=== PATIENT | female | born 1965 | race African-American/Black ===

== ENCOUNTER 2018-09-12 11:51 | Outpatient (REF) | payer OTHER, SELFPAY ==
[2018-09-12 14:14] LABS: ALT 25 U/L (12-78); AST 16 U/L (15-37); Albumin 3.7 g/dL (3.4-5.0); Alkaline Phosphatase 54 U/L (46-116); Anion Gap 10.4 mmol/L (3-11); BUN 12 mg/dL (7-18); Bilirubin, Total 0.3 mg/dL (0.2-1.0); CO2 25.6 mmol/L (21.0-32.0); CREATININE 0.77 mg/dL (0.55-1.02); Calcium 9.3 mg/dL (8.5-10.1); Chloride 98 mmol/L (98-107); Cholesterol 240 mg/dL (50-200); Glucose 79 mg/dL (70-100); HDL Cholesterol 65 mg/dL (40-60); LDL CHOLESTEROL 146 mg/dL (<100); Potassium 4.2 mmol/L (3.5-5.1); Sodium 134 mmol/L (136-145); TSH (W/Ref FT4) 1.23 uIU/mL (0.358-3.74); Triglyceride 67 mg/dL (30-150)
== END 2018-09-12 12:11 ==
LOC: NCHCN 11:51
PROVIDERS: PCP Family Medicine; Visit Provider Family Medicine
DX: Z00.00 Encounter for general adult medical examination without abnormal findings (principal); E04.9 Nontoxic goiter, unspecified; Z13.220 Encounter for screening for lipoid disorders
CPT/HCPCS: 80053; 80061; 83721; 84443

== ENCOUNTER 2019-01-23 09:35 | Outpatient (REF) | payer OTHER, SELFPAY ==
[2019-01-23 12:57] LABS: HCT 38.8 % (36.0-46.0); HGB 12.6 g/dL (12.0-15.5); Mean Corp. HGB Concentration 32.5 g/dL (32.0-36.0); Mean Corpuscular Hemoglobin 27.8 pg (27.0-33.0); Mean Corpuscular Volume 85.5 fL (80-95); Mean Platelet Volume 10.9 fL (8.0-11.0); Platelet Count 198 x1000/uL (130-400); RBC 4.54 m/cumm (4.00-5.20); RBC Distribution Width 14.5 % (11.7-14.6); White Blood Cell Count 4.76 k/cumm (4.4-10.8)
[2019-01-23 13:22] LABS: ALT 28 U/L (12-78); AST 26 U/L (15-37); Albumin 3.6 g/dL (3.4-5.0); Alkaline Phosphatase 56 U/L (46-116); Anion Gap 8.9 mmol/L (3-11); BUN 17 mg/dL (7-18); Bilirubin, Total 0.2 mg/dL (0.2-1.0); CO2 28.1 mmol/L (21.0-32.0); CREATININE 0.74 mg/dL (0.55-1.02); Calcium 9.5 mg/dL (8.5-10.1); Chloride 102 mmol/L (98-107); Cholesterol 226 mg/dL (50-200); Glucose 93 mg/dL (70-100); HDL Cholesterol 60 mg/dL (40-60); LDL CHOLESTEROL 132 mg/dL (<100); Potassium 4.1 mmol/L (3.5-5.1); Sodium 139 mmol/L (136-145); Total Protein 8.2 g/dL (6.4-8.2); Triglyceride 78 mg/dL (30-150)
[2019-01-23 13:29] LABS: VALPROIC ACID 87.7 ug/mL (50-100)
== END 2019-01-23 09:55 ==
LOC: NCHCN 09:35
PROVIDERS: PCP Family Medicine; Visit Provider Family Medicine
DX: E78.5 Hyperlipidemia, unspecified (principal); E04.9 Nontoxic goiter, unspecified; R53.83 Other fatigue; D89.0 Polyclonal hypergammaglobulinemia; Z51.81 Encounter for therapeutic drug level monitoring; F31.75 Bipolar disorder, in partial remission, most recent episode depressed
CPT/HCPCS: 80053; 80061; 83721; 85027; 80164

== ENCOUNTER 2019-07-18 14:06 | Outpatient (REF) | payer OTHER, SELFPAY ==
[2019-07-18 21:39] LABS: HCT 38.2 % (36.0-46.0); HGB 12.6 g/dL (12.0-15.5); Mean Corpuscular Hemoglobin 28.1 pg (27.0-33.0); Mean Corpuscular Volume 85.1 fL (80-95); Mean Platelet Volume 11.2 fL (8.0-11.0); Platelet Count 196 x1000/uL (130-400); RBC 4.49 m/cumm (4.00-5.20); RBC Distribution Width 14.6 % (11.7-14.6); White Blood Cell Count 4.97 k/cumm (4.4-10.8)
[2019-07-18 22:21] LABS: ALT 19 U/L (14-59); AST 23 U/L (15-37); Alkaline Phosphatase 62 U/L (46-116); Anion Gap 13.9 mmol/L (3-11); BUN 15 mg/dL (7-18); Bilirubin, Total 0.4 mg/dL (0.2-1.0); CO2 24.1 mmol/L (21.0-32.0); CREATININE 1.11 mg/dL (0.55-1.02); Calcium 9.6 mg/dL (8.5-10.1); Chloride 100 mmol/L (98-107); Estimated GFR 51.62 (mL/min/1.73m2); Glucose 99 mg/dL (70-100); Potassium 3.9 mmol/L (3.5-5.1); Sodium 138 mmol/L (136-145); Total Protein 8.5 g/dL (6.4-8.2)
[2019-07-18 23:35] LABS: VALPROIC ACID 92.5 ug/mL (50-100)
== END 2019-07-18 14:26 ==
LOC: NCHCN 14:06
PROVIDERS: PCP Family Medicine; Visit Provider Family Medicine
DX: R53.83 Other fatigue (principal); F31.75 Bipolar disorder, in partial remission, most recent episode depressed; Z79.899 Other long term (current) drug therapy; Z51.81 Encounter for therapeutic drug level monitoring
CPT/HCPCS: 80053; 85027; 80164

== ENCOUNTER 2019-09-10 16:11 | Emergency (ER) | payer OTHER, SELFPAY ==
[2019-09-10 16:13] VITALS: BP 120/78; PULSE 86; RESP 14; TEMP 36.4; O2SAT 100
--- NOTE | 2019-09-10 16:31 | ED.GENADUL_ITS ---
Discharge Plan Disposition Patient Disposition: HOME Condition: Stable Discharge Details Chief Complaint: DentalOral Clinical Impression: Pain, dental Primary Care Provider: Candy Kelly ED Provider: Adi Gonzaelz Home Meds and New Rx's Prescriptions: New penicillin V potassium 500 mg tablet 500 mg PO QID Qty: 30 RF: 0 No Action venlafaxine [Effexor XR] 150 MG capsule,extended release 24hr 225 mg PO DAILY RF: 0 divalproex [Depakote] 500 MG tablet,delayed release (DR/EC) 1,000 mg PO DAILY RF: 0 ibuprofen 200 mg Tablet 400 mg PO Q6H PRNRF: 0 Discharge Instructions Instructions: Toothache (ED) Additional Instructions: 1. Drink plenty of fluids. 2. Continue all medications as prescribed. 3. Acetaminophen 1000mg every 4 hours (up to 5 time a day) and/or ibuprofen 600mg every 6 hours as needed for fever or pain. 4. Penicillin 500 mg 4 times a day for 7 days. Return to the Emergency Department (ED) if your condition worsens, does not improve as expected, or for ANY other concerns. Specifically, return if you have new or uncontrolled pain, worsening fever, difficulty breathing, vomiting, or are unable to drink fluids. Medical Decision Making 54-year-old with a history of receding gums who presents with 1 week of worsening pain at her right upper and lower posterior molars. Exam nondiagnostic with no significant gingival swelling, erythema, or fluctuance. However, because of her increased pain, treated with oral penicillin for possible progressive dental infection. Discharged with a plan to follow-up with her dentist tomorrow. Given usual and customary return instructions prior to discharge. Medical Records Medical records reviewed: Yes I reviewed the patient's medical records. HPI 54-year-old woman with a past medical history which includes a receding gumline with associated discomfort. Presents with 1 week of worsening pain associate with the right lateral gingiva/dentition. Pain was initially adjacent to her upper right molars and now is since spread to involve her posterior lower right molars as well. Has increased pain when trying to chew and eat. Denies fever/chills, oropharyngeal swelling, significant neck pain or swelling. General Date/Time Provider Initiated Documentation: 09/10/19 16:27 . Related Data Home Medications Medication Instructions Recorded Confirmed divalproex [Depakote] 1,000 mg PO DAILY tab-cap 03/05/17 09/10/19 venlafaxine [Effexor XR] 225 mg PO DAILY tab-cap 03/05/17 09/10/19 ibuprofen 400 mg PO Q6H PRN 09/10/19 09/10/19 penicillin V potassium 500 mg PO QID #30 tab 09/10/19 Previous Rx's Medication Instructions Recorded penicillin V potassium 500 mg PO QID #30 tab 09/10/19 Allergies Allergy/AdvReac Type Severity Reaction Status Date / Time No Known Allergies Allergy Unverified 09/10/19 16:16 General Stated Complaint: DentalOral ELISE: 4 Review of Systems All systems reviewed & are unremarkable except as noted in HPI and below PFSH Surgical History Colonoscopy - MAC (03/22/17) wisdom teeth Social History Smoking/Tobacco Use Status: Former Tobacco Use Alcohol Intake: never Drug use: Never Substance use type: does not use Do you feel safe at home: Yes Do you feel safe in your relationship?: Yes Exam Narrative Exam Narrative: Nursing note and vital signs have been reviewed and noted. GENERAL: alert, active, no acute distress, well -hydrated, well-nourished HEENT: atraumatic/normocephalic, PERRLA, EOMI, conjunctiva clear, external ears/canals normal, nasal mucosa normal; no significant gingival erythema edema, or fluctuance along the right upper and lower molars. NECK: supple, full range of motion CARDIOVASCULAR: nl pulses, no edema PULMONARY: nl effort, no audible wheezing or stridor ABDOMEN: non-distended EXTREMITY: normal muscle tone, all joints with FROM, no deformity NUERO: normal mentation, moving all extremities, normal stance and gait, PSYCH: alert and oriented SKIN: no new rashes or lesions Course Vital Signs Vital signs: Vital Signs Temperature 97.5 F L 09/10/19 16:13 Pulse 86 09/10/19 16:13 Respiratory Rate 14 09/10/19 16:13 Blood Pressure 120/78 09/10/19 16:13 Pulse Oximetry 100 09/10/19 16:13 Temperature 97.5 F L 09/10/19 16:13 Pulse 86 09/10/19 16:13 Respiratory Rate 14 09/10/19 16:13 Respiratory Effort Non-Labored 09/10/19 16:15 Blood Pressure 120/78 09/10/19 16:13 Blood Pressure Position Sitting 09/10/19 16:13 Pulse Oximetry 100 09/10/19 16:13 Oxygen Delivery Method Room Air 09/10/19 16:13 Oxygen Flow Rate 0 09/10/19 16:13 Pain Level 5 09/10/19 16:18
[2019-09-10] MEDS: Penicillin V POTASSIUM 500 MG TAB PO (16:32)
== END 2019-09-10 16:35 | disposition home or self-care (01) ==
LOC: ER 16:36
PROVIDERS: Emergency Provider Emergency Medicine; PCP Family Medicine
DX: R68.84 Jaw pain (principal); K06.010 Localized gingival recession, unspecified
CPT/HCPCS: 99283

== ENCOUNTER 2019-11-02 01:26 | Outpatient (CLI) | payer OTHER, SELFPAY ==
--- NOTE | 2019-11-02 08:10 | DI.MAMMO_ITS ---
EXAM: MAMMO SCREENING CLINICAL HISTORY: SCREENING, Z12.31 TECHNIQUE: Mammograms were interpreted according to the usual protocol including computer analysis w [employer] CAD system, tomosynthesis and C-view imaging. COMPARISON: February 2017 FINDINGS: The breasts are heterogeneously dense. No dominant mass or clumped microcalcification is identified in either breast. Current examination is compared with previous examinations including February 2017 and there has been no gross interval change in appearance in comparison with the previous studies. IMPRESSION: No specific evidence of malignancy at this time. Routine screening examinations are suggested at year ly intervals in this age group according to the ACS/ACR guidelines. Category 1, breast density catego ry C. BI-RADS Cat 1 - Negative Breast Density - Category C - Heterogeneously dense
== END 2019-11-02 01:46 ==
PROVIDERS: PCP Family Medicine; Visit Provider Family Medicine
DX: Z12.31 Encounter for screening mammogram for malignant neoplasm of breast (principal)
CPT/HCPCS: 77063; 77067

== ENCOUNTER 2019-12-27 13:20 | Outpatient (REF) | payer OTHER, SELFPAY ==
[2019-12-27 20:56] LABS: Abs Immature Grans 0.01 k/cumm (0.0-0.09); Absolute Lymphocyte Count 2.63 k/cumm (1.2-3.4); Absolute Monocyte Count 0.35 k/cumm (0.11-0.7); Absolute Neutrophil Count 2.26 k/cumm (1.2-6.7); HCT 37.1 % (36.0-46.0); HGB 12.2 g/dL (12.0-15.5); Immature Grans % 0.2 %; Lymphocytes % 50.1; Mean Corp. HGB Concentration 32.9 g/dL (32.0-36.0); Mean Corpuscular Volume 85.3 fL (80-95); Monocytes % 6.7; Platelet Count 227 x1000/uL (130-400); RBC 4.35 m/cumm (4.00-5.20); RBC Distribution Width 13.6 % (11.7-14.6); White Blood Cell Count 5.25 k/cumm (4.4-10.8)
[2019-12-28 17:33] LABS: Rheumatoid Factor <8.6 IU/mL (<12.0)
[2020-01-01 11:01] LABS: Antinuclear Ab 2.9 U; Cyclic Citrullinated Peptide <15.6 U
[2020-01-03 13:39] LABS: SS-A Antibody 3.9 Units (<20.0)
== END 2019-12-27 13:40 ==
LOC: NCHCN 13:20
PROVIDERS: PCP Family Medicine; Visit Provider Family Medicine
DX: R53.83 Other fatigue (principal); R68.2 Dry mouth, unspecified; M25.50 Pain in unspecified joint; E55.9 Vitamin D deficiency, unspecified
CPT/HCPCS: 82306; 86038; 86200; 85025; 86235; 86431

== ENCOUNTER 2020-02-21 15:45 | Emergency (ER) | payer OTHER, SELFPAY ==
--- NOTE | 2020-02-21 15:45 | DI.US_ITS ---
EXAM: US LOWER EXTREMITY VENOUS RT CLINICAL HISTORY: Pain/swelling TECHNIQUE: Right lower extremity venous ultrasound performed using grayscale, color-flow, and spectr al Doppler analysis. COMPARISON: No exams were available for comparison FINDINGS: The right common femoral, femoral and popliteal veins demonstrate normal compressibility, augmentatio n, and color Doppler. The posterior tibial veins are patent. The saphenofemoral junction is unremark able. There is no evidence of a Gallegos cyst. The soft tissues are unremarkable. IMPRESSION: No DVT. DATA REPOSITORY:
[2020-02-21 15:53] VITALS: BP 124/81; PULSE 83; RESP 16; TEMP 36.4; O2SAT 98
[2020-02-21 16:03] VITALS: RESP 16
--- NOTE | 2020-02-21 16:40 | DI.VRAD_ITS ---
PROCEDURE INFORMATION: Exam: US Duplex Right Lower Extremity Veins, Limited Exam date and time: 02/21/2020 3:52 PM Age: 54 years old Clinical indication: Leg, lower; Patient HX: RT calf pain after injury rolling muscle. PT noticed swelling of right ankle/foot region today. TECHNIQUE: Imaging protocol: Real-time Duplex ultrasound of the Right Lower Extremity with 2-D ospina scale, color Doppler flow and spectral waveform analysis with image documentation. Limited exam was focused on the right lower extremity veins. COMPARISON: No relevant prior studies available. FINDINGS: Right deep veins: Unremarkable. The common femoral, femoral, proximal profunda femoral and popliteal veins are patent without thrombus. Normal Doppler waveforms. Normal compressibility and/or augmentation response. Right superficial veins: Unremarkable. Saphenofemoral junction is patent without thrombus. Soft tissues: Unremarkable. IMPRESSION: No DVT of the right lower extremity veins. Dictated and Authenticated by: Richard Balderrama MD. Ordering:KAYLEE Holguin MD
--- NOTE | 2020-02-21 17:10 | DI.RAD_ITS ---
EXAM: XR CHEST 2V PA LATERAL CLINICAL HISTORY: thoracic pain TECHNIQUE: 2D digital imaging was performed. COMPARISON: No exams were available for comparison FINDINGS: MEDIASTINUM: Normal. HEART: Normal. PULMONARY VASCULATURE: Normal. LUNGS: Clear. PLEURAL SPACE: No pleural effusion or pneumothorax. BONE:Normal. OTHER FINDINGS:Normal. IMPRESSION: No acute pulmonary findings. DATA REPOSITORY: RADIATION DOSE DELIVERED:
[2020-02-21 17:12] LABS: Abs Immature Grans 0.01 k/cumm (0.0-0.09); Absolute Basophil Count 0.01 k/cumm (0.0-0.2); Absolute Lymphocyte Count 2.32 k/cumm (1.2-3.4); Absolute Monocyte Count 0.41 k/cumm (0.11-0.7); Basophils % 0.2; HCT 34.2 % (36.0-46.0); HGB 11.2 g/dL (12.0-15.5); Immature Grans % 0.2 %; Lymphocytes % 44.2; Mean Corp. HGB Concentration 32.7 g/dL (32.0-36.0); Mean Corpuscular Hemoglobin 27.4 pg (27.0-33.0); Mean Corpuscular Volume 83.6 fL (80-95); Mean Platelet Volume 9.8 fL (8.0-11.0); Monocytes % 7.8; Neutrophils % 47.6; Platelet Count 195 x1000/uL (130-400); RBC 4.09 m/cumm (4.00-5.20); RBC Distribution Width 13.9 % (11.7-14.6); White Blood Cell Count 5.25 k/cumm (4.4-10.8)
--- NOTE | 2020-02-21 17:15 | DI.VRAD_ITS ---
PROCEDURE INFORMATION: Exam: XR Chest, 2 Views Exam date and time: 02/21/2020 5:10 PM Age: 54 years old Clinical indication: Other: Thoracic pain TECHNIQUE: Imaging protocol: XR of the chest Views: 2 views. COMPARISON: No relevant prior studies available. FINDINGS: Lungs: Unremarkable. No consolidation. Pleural space: Unremarkable. No pleural effusion. No pneumothorax. Heart/Mediastinum: Unremarkable. No cardiomegaly. Bones/joints: Unremarkable. IMPRESSION: No acute abnormality. Dictated and Authenticated by: Richard Balderrama MD. Ordering:NELL Vazquez MD
[2020-02-21 17:28] LABS: ALT 23 U/L (14-59); AST 18 U/L (15-37); Albumin 3.4 g/dL (3.4-5.0); Alkaline Phosphatase 59 U/L (46-116); Anion Gap 7.4 mmol/L (3-11); BUN 16 mg/dL (7-18); Bilirubin, Total 0.2 mg/dL (0.2-1.0); CO2 28.6 mmol/L (21.0-32.0); CREATININE 0.84 mg/dL (0.55-1.02); Calcium 8.9 mg/dL (8.5-10.1); Chloride 99 mmol/L (98-107); Glucose 82 mg/dL (74-106); Potassium 3.7 mmol/L (3.5-5.1); Sodium 135 mmol/L (136-145); Total Protein 7.6 g/dL (6.4-8.2)
[2020-02-21 17:30] LABS: Troponin I < 0.05 ng/Ml (<0.06)
[2020-02-21 17:32] VITALS: BP 115/77; PULSE 75; RESP 18; TEMP 36.5; O2SAT 99
--- NOTE | 2020-02-21 17:43 | ED.GENADUL_ITS ---
Discharge Plan Disposition Patient Disposition: HOME Condition: Stable Discharge Details Chief Complaint: Vascular Clinical Impression: Back pain, Plantar fasciitis Primary Care Provider: Candy Kelly ED Provider: George Barlow Home Meds and New Rx's Prescriptions: No Action venlafaxine [Effexor XR] 150 MG capsule,extended release 24hr 225 mg PO DAILY RF: 0 divalproex [Depakote] 500 MG tablet,delayed release (DR/EC) 1,000 mg PO DAILY RF: 0 ibuprofen 200 mg Tablet 400 mg PO Q6H PRNRF: 0 acetaminophen 500 mg Tablet 1,000 mg PO Q6H PRNRF: 0 Discharge Instructions Instructions: Plantar Fasciitis (ED), Back Pain (ED), Plantar Fasciitis Exercises (ED) Additional Instructions: Work-up in the ER is unremarkable for emergent process. [id number] medication such as Tylenol and/or Motrin as directed for discomfort. We discussed cool and/or warm compresses and gentle stretching for your back. We discussed different stretches and massage for your plantar fasciitis. Please watch for new or worsening symptoms and return to the ER for any concerns. I do recommend that you contact your primary care provider tomorrow for prompt outpatient reevaluation Discharge Data Discharge Date/Time-TO BE ENTERED AT DEPARTURE: 02/21/20 17:53 Medical Decision Making This is a 54-year-old female who presents with intermittent symptoms such as right foot and calf discomfort, right axilla sensation, back spasms for the past 3 weeks. She is primarily concerned of DVT and/or PE. She appears well, nontoxic. She is a non-smoker and has never had any hormone therapy. Clinically her leg and foot are unremarkable, Homans sign negative, extremely low suspicion for DVT. Will obtain ultrasound. Given her vague symptoms such as axilla sensation, back spasms, back pain, will initiate laboratory draw, CBC, CMP, troponin, EKG and chest x-ray. Given her presentation, duration of symptoms, currently feeling asymptomatic, will only obtain a single troponin EKG. Patient is comfortable with this plan. Pulse in the 80s, O2 sat 98% on room air. I do believe that her presentation today is multifactorial and her symptoms are likely unrelated. White blood cell count of 5.25 hemoglobin 11.2 hematocrit 34.2 platelet count 195. Sodium 135 potassium 3.7 chloride 99, carbon dioxide 20.6, creatinine 0.84, GFR greater than 60. Troponin less than 0.05. Chest x-ray and ultrasound unremarkable. Given she denies chest pain, has a negative ultrasound, negative x-ray, her O2 sats are 98% on room air and her pulse in the 80s, we did not obtain d-dimer as suspicion for DVT-PE is extremely low. Discussed laboratory values, imaging, EKG with patient. Patient reports that she is currently asymptomatic and very relieved. We discussed [id number] anti-inflammatory therapy, stretching, cool and/or warm compresses for her back and plantar fasciitis. We discussed that if she continues to have the sensation of attentional in her arm that an outpatient nerve conduction study may be indicated. Patient has no additional questions or concerns and is comfortable discharge at this time. She was encouraged to return to the ER for new or worsening symptoms, otherwise contact her primary care provider tomorrow for prompt outpatient reevaluation. Medical Records Medical records reviewed: Yes I reviewed the patient's medical records. Imaging Data Radiologic Study: Attestation: I personally reviewed and interpreted this imaging study as follows: Imaging: X-Ray Radiologist's impression: Chest x-ray negative Radiologic Study #2: Attestation: I personally reviewed and interpreted this imaging study as follows: Imaging: Ultrasound Radiologist's impression: Venous ultrasound of right lower extremity negative Lab Data Lab results reviewed: Yes I reviewed the patient's lab results. Lab results narrative: Laboratory Tests Range/Units 02/21/20 02/21/20 17:00 17:00 WBC (4.4-10.8) k/cumm 5.25 RBC (4.00-5.20) m/cumm 4.09 Hgb (12.0-15.5) g/dL 11.2 L Hct (36.0-46.0) % 34.2 L MCV (80-95) fL 83.6 MCH (27.0-33.0) pg 27.4 MCHC (32.0-36.0) g/dL 32.7 RDW (11.7-14.6) % 13.9 Plt Count (130-400) x1000/uL 195 MPV (8.0-11.0) fL 9.8 Immature Gran % % 0.2 Neutrophils % 47.6 Lymphocytes % 44.2 Monocytes % 7.8 Eosinophils % 0.0 Basophils % 0.2 Absolute Neutrophils (1.2-6.7) k/cumm 2.50 Absolute Lymphocytes (1.2-3.4) k/cumm 2.32 Absolute Monocytes (0.11-0.7) k/cumm 0.41 Absolute Eosinophils (0.0-0.7) k/cumm 0.00 Absolute Basophils (0.0-0.2) k/cumm 0.01 Sodium (136-145) mmol/L 135 L Potassium (3.5-5.1) mmol/L 3.7 Chloride (98-107) mmol/L 99 Carbon Dioxide (21.0-32.0) mmol/L 28.6 Anion Gap (3-11) mmol/L 7.4 BUN (7-18) mg/dL 16 Creatinine (0.55-1.02) mg/dL 0.84 Estimated GFR/1.73 m2 (mL/min/1.73m2) >= 60.00 Glucose (74-106) mg/dL 82 Calcium (8.5-10.1) mg/dL 8.9 Total Bilirubin (0.2-1.0) mg/dL 0.2 AST (15-37) U/L 18 ALT (14-59) U/L 23 Alkaline Phosphatase (46-116) U/L 59 Troponin I (<0.06) ng/Ml < 0.05 Total Protein (6.4-8.2) g/dL 7.6 Albumin (3.4-5.0) g/dL 3.4 ECG Data Attestation: I personally reviewed and interpreted this ECG (s) as follows: Interpretation: EKG obtained at 1651. Reviewed and interpreted with Dr. Brandt. Sinus rhythm. Ventricular of 74. No acute ST elevation or depression. HPI General Mode of arrival: ambulatory . Date/Time Provider Initiated Documentation: 02/21/20 15:49 . Limitations to Documentation: no limitations . Information obtained by: patient . HPI Narrative: This is a 54-year-old female who presents with multiple complaints. She reports that she has been working out with a geriatric physical therapist, thought that she developed plantar fasciitis of the right foot roughly 3 weeks ago. She reports that she is massaging her foot and calf I then noticed that her right calf was painful and possibly slightly swollen. She reports that currently her right foot and calf are asymptomatic. She denies history of DVT or PE. Subsequently over the past couple of weeks she noticed some altered sensation to her right axilla like she pinched a nerve. She reports that this is intermittent and occurs primarily when sleeping with her arm extended over her head, seems positional in nature. Nothing radiates down her right arm. Patient also reports thoracic back spasms intermittent over the past couple of weeks, she reports is worse with bending over or with certain positions. She currently denies any altered sensation to her right axilla or back spasms. She reports currently she has lower back discomfort from sitting in the hospital stretcher. There is no pain rating down her legs, numbness, tingling, weakness. She denies any chest pain or shortness of breath. She is concerned about a DVT and/or PE. Related Data Home Medications Medication Instructions Recorded Confirmed divalproex [Depakote] 1,000 mg PO DAILY tab-cap 03/05/17 02/21/20 venlafaxine [Effexor XR] 225 mg PO DAILY tab-cap 03/05/17 02/21/20 ibuprofen 400 mg PO Q6H PRN 09/10/19 02/21/20 acetaminophen 1,000 mg PO Q6H PRN 02/21/20 02/21/20 Allergies Allergy/AdvReac Type Severity Reaction Status Date / Time No Known Allergies Allergy Unverified 02/21/20 15:59 General Stated Complaint: Vascular ELISE: 3 Review of Systems Constitutional Constitutional: Denies fatigue, Denies fever(s) and Denies weakness Eyes Eyes: Denies change in vision Cardiovascular Cardiovascular: Denies chest pain and Denies dyspnea Respiratory Respiratory: Denies cough and Denies dyspnea Gastrointestinal Gastrointestinal: Denies abdominal pain, Denies nausea and Denies vomiting Genitourinary Genitourinary: Denies dysuria Musculoskeletal Musculoskeletal: Reports back pain, Denies myalgias, Denies numbness and Denies tingling Integumentary/Breasts Skin/Breast: Denies erythema Neurologic Neurologic: Denies numbness, Denies tingling and Denies weakness Endocrine Endocrine: Denies fatigue PFSH Surgical History Colonoscopy - MAC (03/22/17) wisdom teeth Social History Smoking/Tobacco Use Status: Former Tobacco Use Alcohol Intake: current Alcohol Intake frequency: a few times a week Alcohol type: beer Drug use: Never Substance use type: does not use Do you feel safe at home: Yes Do you feel safe in your relationship?: Yes Exam Const General: cooperative, healthy appearing, comfortable and no acute distress Orientation: alert, awake and oriented x3 HENMT Head: normal to inspection, normocephalic and atraumatic Mouth: moist mucous membranes Throat: posterior oropharynx normal Eyes Conjunctivae: conjunctivae normal Neck Neck: normal visual inspection, full ROM, no meningeal signs, trachea midline, supple and nontender Chest Chest: normal inspection of the chest and normal palpation of entire chest wall Resp Effort & Inspection: normal respiratory effort and able to speak in complete sentences Auscultation: clear to auscultation bilaterally Cardio Rate: regular rate Rhythm: regular rhythm GI Palpation: soft and nontender Back/Spine/Pelvis Back: no CVA tenderness, No warmth and No back tenderness Skin General skin exam: no rashes or lesions noted Neuro General: patient alert, patient awake, moves all extremities and no focal motor deficits Gait: normal gait Motor: muscle tone normal throughout Sensory Exam: no sensory deficits noted Extrem General: normal to inspection, full ROM, capillary refill normal, no pedal edema, no calf tenderness, normal gait and other (Negative Homans sign bilaterally) Psych Appearance: grossly normal Mental Status: mental status grossly normal Course Vital Signs Vital signs: Vital Signs Temperature 36.4 C L 02/21/20 15:53 Pulse 83 02/21/20 15:53 Respiratory Rate 16 02/21/20 15:53 Blood Pressure 124/81 02/21/20 15:53 Pulse Oximetry 98 02/21/20 15:53 Temperature 36.5 C 02/21/20 17:32 Temperature Source Skin 02/21/20 17:32 Pulse 75 02/21/20 17:32 Pulse Rhythm Regular 02/21/20 17:32 Pulse Strength Normal 02/21/20 17:32 Respiratory Rate 18 02/21/20 17:32 Respiratory Effort 02/21/20 17:32 Respiratory Depth Normal 02/21/20 17:32 Respiratory Pattern Normal 02/21/20 17:32 Blood Pressure 115/77 02/21/20 17:32 Blood Pressure Mean 89 02/21/20 17:32 Blood Pressure Position Supine 02/21/20 17:32 Pulse Oximetry 99 02/21/20 17:32 Oxygen Delivery Method Room Air 02/21/20 17:32 Oxygen Flow Rate 0 02/21/20 17:32 Pain Level 0 02/21/20 16:03 Lab/Test Results Lab/Test Results: Laboratory Tests Range/Units 02/21/20 02/21/20 17:00 17:00 WBC (4.4-10.8) k/cumm 5.25 RBC (4.00-5.20) m/cumm 4.09 Hgb (12.0-15.5) g/dL 11.2 L Hct (36.0-46.0) % 34.2 L MCV (80-95) fL 83.6 MCH (27.0-33.0) pg 27.4 MCHC (32.0-36.0) g/dL 32.7 RDW (11.7-14.6) % 13.9 Plt Count (130-400) x1000/uL 195 MPV (8.0-11.0) fL 9.8 Immature Gran % % 0.2 Neutrophils % 47.6 Lymphocytes % 44.2 Monocytes % 7.8 Eosinophils % 0.0 Basophils % 0.2 Absolute Neutrophils (1.2-6.7) k/cumm 2.50 Absolute Lymphocytes (1.2-3.4) k/cumm 2.32 Absolute Monocytes (0.11-0.7) k/cumm 0.41 Absolute Eosinophils (0.0-0.7) k/cumm 0.00 Absolute Basophils (0.0-0.2) k/cumm 0.01 Sodium (136-145) mmol/L 135 L Potassium (3.5-5.1) mmol/L 3.7 Chloride (98-107) mmol/L 99 Carbon Dioxide (21.0-32.0) mmol/L 28.6 Anion Gap (3-11) mmol/L 7.4 BUN (7-18) mg/dL 16 Creatinine (0.55-1.02) mg/dL 0.84 Estimated GFR/1.73 m2 (mL/min/1.73m2) >= 60.00 Glucose (74-106) mg/dL 82 Calcium (8.5-10.1) mg/dL 8.9 Total Bilirubin (0.2-1.0) mg/dL 0.2 AST (15-37) U/L 18 ALT (14-59) U/L 23 Alkaline Phosphatase (46-116) U/L 59 Troponin I (<0.06) ng/Ml < 0.05 Total Protein (6.4-8.2) g/dL 7.6 Albumin (3.4-5.0) g/dL 3.4
[2020-02-21 17:52] VITALS: BP 124/81; PULSE 83; RESP 18; TEMP 36.5; O2SAT 99
== END 2020-02-21 17:53 | disposition home or self-care (01) ==
PROVIDERS: Emergency Provider Physician Assistant; PCP Family Medicine
DX: M72.2 Plantar fascial fibromatosis (principal); M54.6 Pain in thoracic spine; M62.830 Muscle spasm of back; M79.621 Pain in right upper arm; R20.8 Other disturbances of skin sensation; Z87.891 Personal history of nicotine dependence
CPT/HCPCS: 36415; 80053; 93005; 99285; 71046; 84484; 85025; 93010; 93971

== ENCOUNTER 2020-06-06 17:38 | Outpatient (REF) | payer OTHER, SELFPAY ==
[2020-06-06 20:52] LABS: Abs Immature Grans 0.01 10^3/uL (0.0-0.06); Absolute Basophil Count 0.01 10^3/uL (0.0-0.2); Absolute Lymphocyte Count 2.49 10^3/uL (1.2-3.4); Absolute Monocyte Count 0.41 10^3/uL (0.1-0.8); Absolute Neutrophil Count 2.04 10^3/uL (1.2-6.7); Basophils % 0.2; HCT 39.3 % (36.0-46.0); HGB 12.7 g/dL (11.2-15.7); Immature Grans % 0.2; Lymphocytes % 50.2; MCH 27.2 pg (27.0-33.0); MCHC 32.3 % (32.0-36.0); MCV 84.2 fL (80-95); MPV 10.3 fL (8.0-11.0); Monocytes % 8.3; Neutrophils % 41.1; Nucleated RBC 0 %; Platelet Count 235 10^3/uL (130-400); RBC 4.67 10^6/uL (3.93-5.22); RDW 14.4 % (11.7-14.6); RDW-SD 44.1 fL; WBC 4.96 10^3/uL (4.4-10.8)
[2020-06-06 21:07] LABS: Salicylate < 2.8 mg/dL (2.8-20.0)
[2020-06-06 21:09] LABS: VALPROIC ACID 88.7 ug/mL (50-100)
[2020-06-06 21:13] LABS: Acetaminophen < 2 ug/mL (10-30)
[2020-07-03 09:33] LABS: Specimen Type Serum
== END 2020-06-06 17:58 ==
LOC: NCHCN 17:38
PROVIDERS: PCP Family Medicine; Visit Provider Family Medicine
DX: Z79.899 Other long term (current) drug therapy (principal); Z51.81 Encounter for therapeutic drug level monitoring
CPT/HCPCS: 80101; 80164; 80329; 85025

== ENCOUNTER 2020-11-14 18:57 | Outpatient (REF) | payer OTHER, SELFPAY ==
--- NOTE | 2020-11-14 15:30 | PAPFT_PTH ---
PATIENT: Neha Vergara LOC: [facility] U#:[id number] AGE/SX: 55/F ROOM: RE11/14/[address]: Candy Kelly : 1965 BED: DIS: 11/14/2020 SPEC #: [id number] RECD: 11/15/20 12:54 STATUS: VIOLETTA REQ #: [id number] HUNG: 11/14/20 15:[address]: Candy Kelly DEPT: [facility] Cytology RECD BY: Loan Kaplan Tissues: 1 - CX/ENDOCX FOR PAP SMEARS Procedures: PAP THIN PREP/UVM Screening HPV DNA PROBE Comments: [id number]
== END 2020-11-14 18:58 | disposition home or self-care (01) ==
LOC: NCHCN 18:57
PROVIDERS: PCP Family Medicine; Visit Provider Family Medicine
DX: Z00.00 Encounter for general adult medical examination without abnormal findings (principal); Z12.4 Encounter for screening for malignant neoplasm of cervix; Z11.51 Encounter for screening for human papillomavirus (HPV); Z01.419 Encounter for gynecological examination (general) (routine) without abnormal findings
CPT/HCPCS: 88142; 87624

== ENCOUNTER 2020-12-18 09:17 | Outpatient (REF) | payer OTHER, SELFPAY ==
[2020-12-18 13:59] LABS: HCT 38.3 % (36.0-46.0); HGB 12.3 g/dL (11.2-15.7); MCH 27.6 pg (27.0-33.0); MCHC 32.1 % (32.0-36.0); MCV 86.1 fL (80-95); Platelet Count 222 10^3/uL (130-400); RBC 4.45 10^6/uL (3.93-5.22); RDW 13.8 % (11.7-14.6); WBC 5.82 10^3/uL (4.4-10.8)
[2020-12-18 14:24] LABS: ALT 22 U/L (14-59); AST 17 U/L (15-37); Albumin 3.8 g/dL (3.4-5.0); Alkaline Phosphatase 70 U/L (46-116); Anion Gap 8.7 mmol/L (3-11); BUN 15 mg/dL (7-18); Bilirubin, Total 0.3 mg/dL (0.2-1.0); CO2 29.3 mmol/L (21.0-32.0); CREATININE 0.8 mg/dL (0.55-1.02); Calcium 9.4 mg/dL (8.5-10.1); Calculated LDL 148 mg/dL (<100); Chloride 102 mmol/L (98-107); Cholesterol 220 mg/dL (<200); Glucose 87 mg/dL (74-106); HDL Cholesterol 59 mg/dL (40-60); Potassium 4.6 mmol/L (3.5-5.1); Sodium 140 mmol/L (136-145); Total Protein 8.2 g/dL (6.4-8.2); Triglyceride 69 mg/dL (<150)
[2020-12-19 04:41] LABS: Vitamin D 25 Total 31.9 ng/ml (30-100)
== END 2020-12-18 09:18 | disposition home or self-care (01) ==
LOC: NCHCN 09:17
PROVIDERS: PCP Family Medicine; Visit Provider Family Medicine
DX: Z00.00 Encounter for general adult medical examination without abnormal findings (principal); E78.5 Hyperlipidemia, unspecified; E55.9 Vitamin D deficiency, unspecified
CPT/HCPCS: 80053; 80061; 82306; 85027

== ENCOUNTER 2021-06-23 14:42 | Outpatient (REF) | payer OTHER, SELFPAY ==
[2021-06-23 14:50] LABS: Hemoglobin A1C 5.7 % (<5.7)
[2021-06-23 15:05] LABS: Calculated LDL 173 mg/dL (<100); Cholesterol 266 mg/dL (<200); HDL Cholesterol 71 mg/dL (40-60); Triglyceride 111 mg/dL (<150)
[2021-06-23 15:07] LABS: VALPROIC ACID 97.8 ug/mL
== END 2021-06-23 14:43 | disposition home or self-care (01) ==
LOC: NCHCN 14:42
PROVIDERS: PCP Family Medicine; Visit Provider Family Medicine
DX: E78.5 Hyperlipidemia, unspecified (principal); R63.5 Abnormal weight gain; R53.83 Other fatigue; Z79.899 Other long term (current) drug therapy; Z51.81 Encounter for therapeutic drug level monitoring
CPT/HCPCS: 80061; 80164; 83036

== ENCOUNTER 2021-09-10 02:39 | Outpatient (CLI) | payer OTHER, SELFPAY ==
--- NOTE | 2021-09-10 13:00 | NS.NUTBLAN_ITS ---
Neha was referred for Medical Nutrition Therapy for pre diabetes, elevated cholesterol levels and weight management. 5'5 195 lbs BMI 32.3. Meds: depakote, effexor, statin. Labs(06/23/21): A1C: 5.7% Chol: 266, LDL: 173, HDL: 71, Tri. 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 Has been on depakote for many years. Goal Wt: <180 lbs. Diet Recall: mostly well balanced, home made meals- reports binging on cookies/sweets couple times per month Exercise: sees systems trainer 1 hour, twice weekly, used to be avid hiker and power walker Session today focused on how to decrease insulin resistance to help with weight loss, glycemic and lipid management. Lab and weight profile indicates beginning of metabolic syndrome. Recommend 10% weight loss and following a meal plan with 80-100 g carbs, 60-70 g protein, 45-55 g fat. Recommend 5 hours of cardio per week. Provided meal plans and web sites to help tracking meals. Follow up - Neha to call when ready to follow up. Goal is 5 lbs weight loss per month to goal weight of 179 lbs.
== END 2021-09-10 02:40 | disposition home or self-care (01) ==
PROVIDERS: PCP Family Medicine; Visit Provider Dietitian, Registered
DX: Z71.3 Dietary counseling and surveillance (principal); R73.03 Prediabetes
CPT/HCPCS: 97802

== ENCOUNTER 2021-12-01 09:24 | Outpatient (REF) | payer OTHER, SELFPAY ==
[2021-12-01 15:46] LABS: ALT 16 U/L (14-59); AST 17 U/L (15-37); Albumin 3.9 g/dL (3.4-5.0); Alkaline Phosphatase 76 U/L (46-116); Anion Gap 8.1 mmol/L (3-11); BUN 13 mg/dL (7-18); Bilirubin, Total 0.4 mg/dL (0.2-1.0); CO2 27.9 mmol/L (21.0-32.0); CREATININE 0.8 mg/dL (0.55-1.02); Calcium 9.4 mg/dL (8.5-10.1); Calculated LDL 98 mg/dL (<100); Chloride 101 mmol/L (98-107); Cholesterol 177 mg/dL (<200); Glucose 88 mg/dL (74-106); HDL Cholesterol 70 mg/dL (40-60); Potassium 4.3 mmol/L (3.5-5.1); Sodium 137 mmol/L (136-145); Triglyceride 48 mg/dL (<150)
[2021-12-01 16:26] LABS: Vitamin D 25 Total 32.3 ng/mL (30-100)
== END 2021-12-01 09:25 | disposition home or self-care (01) ==
LOC: NCHCN 09:24
PROVIDERS: PCP Family Medicine; Visit Provider Family Medicine
DX: E78.5 Hyperlipidemia, unspecified (principal); E55.9 Vitamin D deficiency, unspecified; Z79.899 Other long term (current) drug therapy
CPT/HCPCS: 80053; 80061; 82306

== ENCOUNTER 2022-03-31 03:03 | Outpatient (CLI) | payer OTHER, SELFPAY ==
--- NOTE | 2022-03-31 14:00 | NS.NUTBLAN_ITS ---
Neha returns for weight mangement education. 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 Averaging [id number] steps daily Meds: no change Neha reports that she no longer takes a statin and that her pre diabetes/hyperlipidemia have resolved. Neha has lost 8 lbs in last 7 months by making small adjustments to her meal plan. Her goal weight is around 170 lbs. Session today focused on fine tuning her meal plan and increasing her activity level. Recommend keeping carbs below 100 g daily and avoiding carbs at dinner meal - 5 out of 7 days. Also, recommend increasing steps to average 8000 steps daily. No follow up planned at this time.
== END 2022-03-31 03:04 | disposition home or self-care (01) ==
LOC: DS 03:03
PROVIDERS: PCP Family Medicine; Visit Provider Dietitian, Registered
DX: E66.3 Overweight (principal); R73.03 Prediabetes; Z68.29 Body mass index [BMI] 29.0-29.9, adult; Z71.3 Dietary counseling and surveillance
CPT/HCPCS: 97803

== ENCOUNTER 2022-04-13 15:29 | Outpatient (REF) | payer OTHER, SELFPAY ==
[2022-04-13 15:27] LABS: Calculated LDL 168 mg/dL (<100); Cholesterol 262 mg/dL (<200); HDL Cholesterol 79 mg/dL (40-60); Triglyceride 76 mg/dL (<150)
== END 2022-04-13 15:30 | disposition home or self-care (01) ==
LOC: NCHCN 15:29
PROVIDERS: PCP Family Medicine; Visit Provider Family Medicine
DX: E78.5 Hyperlipidemia, unspecified (principal)
CPT/HCPCS: 80061

== ENCOUNTER → 2022-07-29 02:32 | Outpatient (CLI) | payer OTHER, SELFPAY ==
--- NOTE | 2022-07-29 | DI.MAMMO_ITS ---
Exam(s) MAMMO SCREENING EXAM: MAMMO SCREENING CLINICAL HISTORY: SCREENING, Z12.31, [facility], Z00.00 TECHNIQUE: Mammograms were interpreted according to the usual protocol including computer analysis w [employer] CAD system, tomosynthesis and C-view imaging. COMPARISON: FINDINGS: The breasts are heterogeneously dense. No dominant mass or clumped microcalcification is identified in either breast. The current examination is compared with previous examinations including October 05 and there has been no gross interval change in appearance in comparison with the prior studies. IMPRESSION: No specific evidence of malignancy at this time. Routine screening examinations are suggested at yea rly intervals in this age group according to the ACS ACR guidelines. BI-RADS Category 1 - Negative Breast Density - Category C - Heterogeneously dense
== END ==
PROVIDERS: PCP Family Medicine; Visit Provider Family Medicine
DX: Z12.31 Encounter for screening mammogram for malignant neoplasm of breast (principal); R92.8 Other abnormal and inconclusive findings on diagnostic imaging of breast
CPT/HCPCS: 77063; 77067

== ENCOUNTER 2022-08-12 16:16 | Outpatient (REF) | payer OTHER, SELFPAY ==
[2022-08-12 15:32] LABS: VALPROIC ACID 40.5 ug/mL
== END 2022-08-12 16:17 | disposition home or self-care (01) ==
LOC: NCHCN 16:16
PROVIDERS: PCP Family Medicine; Visit Provider Nurse Practitioner Psychiatric/Mental Health
DX: Z51.81 Encounter for therapeutic drug level monitoring (principal); F31.75 Bipolar disorder, in partial remission, most recent episode depressed
CPT/HCPCS: 80164

== ENCOUNTER 2022-12-28 16:41 | Outpatient (REF) | payer OTHER, SELFPAY ==
[2022-12-28 21:51] LABS: Abs Immature Grans 0.01 10^3/uL (0.0-0.06); Absolute Basophil Count 0.02 10^3/uL (0.0-0.2); Absolute Lymphocyte Count 2.65 10^3/uL (1.2-3.4); Absolute Monocyte Count 0.49 10^3/uL (0.1-0.8); Absolute Neutrophil Count 3.45 10^3/uL (1.2-6.7); Basophils % 0.3; HCT 38.1 % (36.0-46.0); HGB 12.4 g/dL (11.2-15.7); Immature Grans % 0.2; MCH 27.3 pg (27.0-33.0); MCHC 32.5 % (32.0-36.0); MCV 84 fL (80-95); MPV 10.9 fL (8.0-11.0); Monocytes % 7.4; Neutrophils % 52.1; Platelet Count 193 10^3/uL (130-400); RBC 4.55 10^6/uL (3.93-5.22); RDW 14.2 % (11.7-14.6); RDW-SD 43.9 fL; WBC 6.62 10^3/uL (4.4-10.8)
[2022-12-28 22:45] LABS: ALT 24 U/L (14-59); AST 20 U/L (15-37); Alkaline Phosphatase 82 U/L (46-116); Bilirubin, Direct 0.1 mg/dL (0.0-0.2); Bilirubin, Total 0.2 mg/dL (0.2-1.0); Total Protein 8.4 g/dL (6.4-8.2)
== END 2022-12-28 16:42 | disposition home or self-care (01) ==
LOC: NCHCN 16:41
PROVIDERS: PCP Family Medicine; Visit Provider Nurse Practitioner Psychiatric/Mental Health
DX: F31.75 Bipolar disorder, in partial remission, most recent episode depressed (principal); Z51.81 Encounter for therapeutic drug level monitoring; Z79.899 Other long term (current) drug therapy
CPT/HCPCS: 80076; 85025

== ENCOUNTER 2023-04-19 10:54 | Outpatient (REF) | payer OTHER, SELFPAY ==
[2023-04-19 16:24] LABS: ALT 19 U/L (14-59); AST 21 U/L (15-37); Albumin 3.8 g/dL (3.4-5.0); Alkaline Phosphatase 64 U/L (46-116); Anion Gap 10.9 mmol/L (3-11); BUN 23 mg/dL (7-18); Bilirubin, Total 0.3 mg/dL (0.2-1.0); CO2 28.1 mmol/L (21.0-32.0); CREATININE 0.9 mg/dL (0.55-1.02); Calcium 9.7 mg/dL (8.5-10.1); Calculated LDL 101 mg/dL (<100); Chloride 102 mmol/L (98-107); Cholesterol 180 mg/dL (<200); Glucose 101 mg/dL (74-106); HDL Cholesterol 66 mg/dL (40-60); Potassium 4.8 mmol/L (3.5-5.1); Sodium 141 mmol/L (136-145); Triglyceride 65 mg/dL (<150)
== END 2023-04-19 10:55 | disposition home or self-care (01) ==
LOC: NCHCN 10:54
PROVIDERS: PCP Family Medicine; Visit Provider Family Medicine
DX: Z00.00 Encounter for general adult medical examination without abnormal findings (principal); Z51.81 Encounter for therapeutic drug level monitoring; E78.5 Hyperlipidemia, unspecified
CPT/HCPCS: 80053; 80061; 80164

== ENCOUNTER 2023-04-27 15:11 | Outpatient (REF) | payer OTHER, SELFPAY ==
[2023-04-27 21:34] LABS: VALPROIC ACID 80.9 ug/mL
== END 2023-04-27 15:12 | disposition home or self-care (01) ==
LOC: NCHCN 15:11
PROVIDERS: PCP Family Medicine; Visit Provider Nurse Practitioner Psychiatric/Mental Health
DX: Z51.81 Encounter for therapeutic drug level monitoring (principal)
CPT/HCPCS: 80164

== ENCOUNTER 2023-06-28 14:59 | Outpatient (REF) | payer OTHER, SELFPAY ==
[2023-06-28 21:16] LABS: Hemoglobin A1C 5.7 % (<5.7)
[2023-06-28 21:57] LABS: TSH (W/Ref FT4) 2.29 uIU/mL (0.36-3.74)
[2023-06-29 17:59] LABS: Valproic Acid 84 ug/mL (50-100)
== END 2023-06-28 15:00 | disposition home or self-care (01) ==
LOC: NCHCN 14:59
PROVIDERS: PCP Family Medicine; Visit Provider Family Medicine
DX: Z00.00 Encounter for general adult medical examination without abnormal findings (principal); E04.9 Nontoxic goiter, unspecified; R63.5 Abnormal weight gain; Z79.899 Other long term (current) drug therapy; Z51.81 Encounter for therapeutic drug level monitoring; F31.75 Bipolar disorder, in partial remission, most recent episode depressed
CPT/HCPCS: 80164; 83036; 84443

== ENCOUNTER 2023-11-19 13:57 | Outpatient (REF) | payer OTHER, SELFPAY ==
[2023-11-19 14:58] LABS: Hemoglobin A1C 5.5 % (<5.7)
== END 2023-11-19 13:58 | disposition home or self-care (01) ==
LOC: NCHCN 13:57
PROVIDERS: PCP Family Medicine; Referring Provider Family Medicine; Visit Provider Family Medicine
DX: R73.03 Prediabetes (principal)
CPT/HCPCS: 83036

== ENCOUNTER 2024-04-26 08:27 | Outpatient (REF) | payer OTHER, SELFPAY ==
[2024-04-26 15:39] LABS: ALT 35 U/L (14-59); AST 23 U/L (15-37); Albumin 3.7 g/dL (3.4-5.0); Alkaline Phosphatase 60 U/L (46-116); Anion Gap 9.8 mmol/L (3-11); BUN 14 mg/dL (7-18); Bilirubin, Total 0.29 mg/dL (0.2-1.0); CO2 29.2 mmol/L (21.0-32.0); CREATININE 0.8 mg/dL (0.55-1.02); Calcium 9.5 mg/dL (8.5-10.1); Calculated LDL 99 mg/dL (<100); Chloride 103 mmol/L (98-107); Cholesterol 181 mg/dL (<200); Estimated GFR 86.42 (mL/min/1.73m2); Glucose 86 mg/dL (74-106); HDL Cholesterol 73 mg/dL (40-60); Potassium 4.7 mmol/L (3.5-5.1); Sodium 142 mmol/L (136-145); Total Protein 7.8 g/dL (6.4-8.2); Triglyceride 48 mg/dL (<150); Vitamin D 25 Total 50.4 ng/mL (30-100)
== END 2024-04-26 08:28 | disposition home or self-care (01) ==
LOC: NCHCN 08:27
PROVIDERS: PCP Family Medicine; Visit Provider Family Medicine
DX: Z00.00 Encounter for general adult medical examination without abnormal findings (principal)
CPT/HCPCS: 80053; 80061; 82306

== ENCOUNTER 2024-06-13 03:34 | Outpatient (CLI) | payer OTHER, SELFPAY ==
--- NOTE | 2024-06-14 10:51 | TELEFU_ITS ---
Date of service: 06/13/24 Time of Service: 10:00 Nutrition Note NOTE: Neha referred to nutrition visit for weight mgt. She is with 2 kids at home. Last may she was 82.5kg at 67 which results in a BMI of 30.3. She is on metformin 500mg BID, atorvastatin and a fish oil supplement. Her does most of the cooking at home and the dinner meal tends to be the family meal where everyone eats together. She signed up for [employer] which is a lifestyle change program in conjunction with the ADA and [facility] - she received a free scale and gets lot of resources. She is also planning on starting diabetes prevention program. She currently does pilates 1-2times per week and walks daily. We discussed her recommended macros of 1500kcals, 112g protein, 150g total carbs, and 50g fat and how to track and evaluate. We teased out added sugar and fiber out of total carb goal and suggested 25g or less of her total carbs come from added sugars and 25g or more come from fiber category of carbs. Affirmed her activity and also emphasized strength training as a good benefit. We discussed being proactive with meals and setting up a repeatable menu for the meals and snacks she eats on her own outsdie of the family dinner meal and take advantage of being consistent with breakfast with a goal to get 30-50g within an hour of waking to stimulate thermic effect of food and help with early satiety. Water goal made is also a minimum of 60oz free water daily. Will touch base with phone follow up end of Jun/early July to check on progress and offer any more resources Time Spent in Nutritional Counseling and Treatment: 40 min
== END 2024-06-13 03:35 | disposition home or self-care (01) ==
LOC: DS 03:34
PROVIDERS: PCP Family Medicine; Visit Provider Dietitian, Registered
DX: Z71.3 Dietary counseling and surveillance (principal)
CPT/HCPCS: 00123; 97802

== ENCOUNTER 2024-06-28 02:00 | Outpatient (CLI) | payer OTHER, SELFPAY ==
--- NOTE | 2024-06-28 07:30 | DI.MAMMO_ITS ---
Exam(s) MAMMO SCREENING EXAM: MAMMO SCREENING CLINICAL HISTORY: screening,Z12.39 TECHNIQUE: Bilateral full field digital CC and MLO mammographic images were obtained with 3D tomosyn thesis and utilizing computer aided detection (CAD). COMPARISON: Available for comparison. FINDINGS: Portion of the inferior aspect of the left breast on the MLO view is not included on the examination. Masses/Architectural Distortion: None seen. Microcalcifications: No suspicious pleomorphic-type are seen. Skin Thickening/Nipple Retraction: None. IMPRESSION: 1. A portion of the inferior aspect of the left breast was not included on the MLO view. 2. The patient return for repeat left MLO view at no additional expense. 3. No suspicious masses or microcalcifications are seen at this time. BI-RADS Category 0 - Incomplete: Need additional imaging evaluation Breast Density - Category C - Heterogeneously dense Breast density category C or D implies that the patient has dense breast tissue. Dense breast tissue is very common and is not abnormal but dense breast tissue can make it harder to find cancer on a ma mmogram. Also, dense breast tissue may increase their breast cancer risk. This information about the result of the mammogram report was provided to the patient to raise their awareness. Use this report when you speak with the patient about their risks for breast cancer, which includes their family hist ory. At that time, you may recommend for more screening tests (Ultrasound or MRI) as they might be us eful based on their risk. A negative radiographic report should not delay biopsy if a dominant or clinically suspicious mass is present. Up to ten percent of cancers are not identified on mammography. A negative report may reinforce clinical impression. Adenosis and dense breasts may obscure an underlying neoplasm. False positive reports average 6 to 10%. Patient will receive a letter notifying them of these results.
== END 2024-06-28 02:20 ==
LOC: DI 02:00
PROVIDERS: PCP Family Medicine; Visit Provider Family Medicine
DX: Z12.31 Encounter for screening mammogram for malignant neoplasm of breast (principal)
CPT/HCPCS: 77063; 77067

== ENCOUNTER 2024-07-05 01:23 | Outpatient (CLI) | payer OTHER, SELFPAY ==
--- NOTE | 2024-07-05 | DI.MAMMO_ITS ---
Exam(s) MG MAMMO SCREEN CALL BACK UNI EXAM: MAMMO SCREEN CALL BACK UNI CLINICAL HISTORY: F/U MAMMO, REPEAT LT MLO,PORTION NOT INCLUDED TECHNIQUE: Mammograms were interpreted according to the usual protocol including computer analysis w ith CAD system, tomosynthesis and C-view imaging. Repeat left MLO view. COMPARISON: 06/28/2024 and exams back to 2014. FINDINGS: The repeat left MLO view is of excellent technical quality. The breasts are composed of heterogeneously dense fibroglandular densities, Breast Density category C . No suspicious masses or suspicious microcalcifications are seen. No skin thickening or abnormal axillary lymph nodes are seen. There has been no significant change from prior exams. IMPRESSION: BI-RADS Category 1, Negative mammogram. Yearly screening mammography is recommended. Breast Density Category C, heterogeneously Dense. The mammogram demonstrates the patient's breast tissue is dense. Dense breast tissue is very common a nd is not abnormal but dense breast tissue can make it harder to find cancer on a mammogram. Also, de nse breast tissue may increase breast cancer risk. This information about the result of the mammogram report was provided to the patient to raise their awareness. Use this report when you speak with the patient about their risks for breast cancer, which includes their family history. At that time, you may recommend additional screening tests (Ultrasound or MRI) as they might be useful based on their r isk. A negative radiographic report should not delay biopsy if a dominant or clinically suspicious mass is present. Up to ten percent of cancers are not identified on mammography. A negative report may reinforce clinical impression. Adenosis and dense breasts may obscure an underlying neoplasm. False positive reports average 6 to 10%.
== END 2024-07-05 01:43 ==
LOC: DI 01:23
PROVIDERS: PCP Family Medicine; Visit Provider Obstetrics & Gynecology
DX: Z12.31 Encounter for screening mammogram for malignant neoplasm of breast (principal); R92.8 Other abnormal and inconclusive findings on diagnostic imaging of breast
CPT/HCPCS: 77063; 77067

== ENCOUNTER 2024-12-29 17:42 | Outpatient (REF) | payer OTHER, SELFPAY ==
[2024-12-29 15:18] LABS: NT-proBNP 40 pg/mL (<300)
== END 2024-12-29 17:43 | disposition home or self-care (01) ==
LOC: NCHCN 17:42
PROVIDERS: PCP Family Medicine; Visit Provider Family Medicine
DX: R06.09 Other forms of dyspnea (principal)
CPT/HCPCS: 83880

== ENCOUNTER 2025-02-01 02:44 | Outpatient (CLI) | payer OTHER, SELFPAY ==
--- NOTE | 2025-02-01 08:30 | DI.US_ITS ---
APPROVED REPORT EXAM: Comprehensive 2D, Doppler, and color-flow Echocardiogram Patient Location: Out-Patient [facility] Helper: Gerardo Collins RDCS (AE) Indications: Dyspnea on exertion Conclusion Normal left ventricular wall thickness and chamber size. Ejection fraction is 55 to 60%. Wall motio n is normal Normal right ventricular size and function Both atria are normal in size There is no structural or hemodynamically significant valvular disease Wall motion Left Ventricle The left ventricle is normal size. The left ventricular systolic function is normal. The left ventric ular ejection fraction is within the normal range. There is normal left ventricular wall thickness. T here is normal LV segmental wall motion. There is no ventricular septal defect visualized. LVEF is 55 -60%. Right Ventricle The right ventricle is normal size. The right ventricular systolic function is normal. Atria The left atrium size is normal. The right atrium size is normal. Atrial septum is hypermobile Aortic Valve The aortic valve is normal in structure. There is no aortic valvular stenosis. No aortic regurgitatio n is present. Mitral Valve The mitral valve is normal in structure. No evidence of mitral valve stenosis. Trace mitral regurgita tion. Tricuspid Valve The tricuspid valve is normal in structure. There is no tricuspid valve stenosis. Trace tricuspid reg urgitation. Pulmonic Valve The pulmonary valve is normal in structure. There is no pulmonic valvular stenosis. There is no pulmo moon valvular regurgitation. Great Vessels The aortic root is normal in size. The ascending aorta is normal in size. Aortic arch is normal in ca liber. IVC is normal in size and collapses >50% with inspiration. Pericardium There is no pericardial effusion. 2D Dimensions IVSD d PLAX 0.77 cm F: 0.6-1.0 Ao Root d 3.24 cm F: 2.7 - 3.3 LVPW d PLAX 0.83 cm F: 0.6 - 1.0 Ao Asc Diam d 3.07 cm F: 2.3 - 3.1 LVID d PLAX 4.23 cm F: 3.8 - 5.2 LVDs 2.88 cm F: 2.2 - 3.5 LV EF Teichholz 60.3 % FS 31.86 % LV EDV (Teich) 79.9 mL LV ESV (Teich) 31.7 mL Stroke Vol Index (Teich) 26.47 M-Mode TAPSE 2.00 cm (M/F) >1.7 Auto EF LV EDV A4C 65.5 mL LV EDV A2C 76.9 mL LV EDV BP 72.3 mL LV ESV A4C 29.7 mL LV ESV A2C 33.6 mL LV ESV BP 31.7 mL LVEF(%) A4C 54.7 % LVEF(%) A2C 56.2 % LVEF(%) BP 56.1 % LV SV A4C 35.9 ml LV SV A2C 43.2 ml LV SV BP 40.5 ml LV CO A4C 2.6 L/min LV CO A2C 3.1 L/min LV CO BP 2.8 L/min HR A4C 72.73 BPM HR A2C 71.01 BPM LV EDV Index (BP) LA Volume LA Length A4C 4.0 cm LA Length A2C 4.2 cm LA Area A4C s 7.50 cm2 LA Area A2C s 13.24 cm2 LA Vol A4C A-L 11.99 mL LA Vol A2C A-L 35.40 mL LA Vol Biplane A-L 21.2 mL LA Vol/BSA A4C A-L LA Vol/BSA A2C A-L LA Vol/BSA BP A-L 11.6 mL/m2 LA Vol A4C MOD 11.7 mL LA Vol A2C MOD 32.8 mL LA Vol BP MOD 20.0 mL RA Volume RA Area A4C 8.4 cm2 RA ESV A4C (A-L) 15.7mL RA Vol/BSA A4C A-L RA Length A4C 3.8 cm RA ESV A4C (MOD) 15.3mL LV Diastology MV E' medial 0.092 (>0.07 m/s) MV E Vmax 0.67 (0.4-1.3 m/s) MV E/E' MED 7.26 (<14) MV A Vmax 0.55 (0.4-1.3 m/s) MV E' lateral 0.097 (>0.1 m/s) E/A Ratio 1.2 MV E/E' LAT 6.89 (<14) MV E' Average 0.095 m/s MV E/E'(average) 7.07 Aortic Valve AoV Vmax 1.17 m/s LVOT Vmax 0.88 m/s AoV Peak Grad 5.5 mmHg LVOT Peak Grad 3.1 mmHg AoV Area (Vmax) 2.31 cm2 LVOT VTI 0.164 m AoV VTI 0.246 m LVOT Mean Grad 1.5 mmHg AoV Mean Jose Luis. 0.81 m/s LVOT SV 50.27 mL AoV Mean Grad 3.0 mmHg LVOT Diam s 1.95 cm AoV Area (VTI) 2.05 cm2 AV Regurg Peak Gr. 5.51 mmHg Velocity Ratio 0.75 Mitral Valve MV DT 238 (160-240 msec) Pulmonary Valve PV Vmax 0.71 (0.5-1.5 m/s) RVOT Vmax 0.49 m/s PV Peak Grad 2.0 mmHg RVOT Peak Gr. 1.0 mmHg PV Mean Jose Luis 0.52 m/s RVOT VTI 0.109 m PV Mean Grad 1.2 mmHg RVOT Mean Gr. 0.5 mmHg Tricuspid Valve TV S' 0.16 m/s
== END 2025-02-01 03:04 ==
LOC: DI 02:45
PROVIDERS: PCP Family Medicine; Visit Provider Internal Medicine Cardiovascular Disease
DX: R06.09 Other forms of dyspnea (principal)
CPT/HCPCS: 93306

== ENCOUNTER 2025-07-03 02:19 | Outpatient (CLI) | payer OTHER, SELFPAY ==
--- NOTE | 2025-07-03 11:21 | DI.MAMMO_ITS ---
Exam(s) MAMMO SCREENING EXAM: MAMMO SCREENING CLINICAL HISTORY: SCREENING MAMMO Z12.31. TECHNIQUE: Bilateral full field digital CC and MLO mammographic images were obtained with 3D tomosynthesis and utilizing computer aided detection (CAD). COMPARISON: Prior mammograms were reviewed. FINDINGS: There has been no significant change in the appearance and distribution of the fibroglandular tissue. There are no new spiculated masses nor malignant appearing microcalcification groups. There is no significant architectural distortion nor skin thickening-retraction. IMPRESSION: No radiographic evidence of malignancy. BI-RADS Category 1 - Negative Breast Density - Category C - The breast are heterogeneously dense, which may obscure small masses. Breast density Category C or D implies that the patient has dense breast tissue. Dense breast tissue can make it harder to find cancer on a mammogram. Dense breast tissue is also associated with an increased risk of breast cancer. This information about the result of the mammogram report was provided to the patient to raise their awareness. Use this report when you speak with the patient about their risks for breast cancer, which includes their family history. At that time, you may recommend additional screening tests (Ultrasound or MRI) as these tests may add significant information. A negative radiographic report should not delay biopsy if a dominant or clinically suspicious mass is present. Up to ten percent of cancers are not identified on mammography. A negative report may reinforce clinical impression. Adenosis and dense breasts may obscure an underlying neoplasm. False positive reports average 6 to 10%. Patient will receive a letter notifying them of these results.
== END 2025-07-03 02:39 ==
LOC: DI 02:19
PROVIDERS: PCP Family Medicine; Visit Provider Family Medicine
DX: Z12.31 Encounter for screening mammogram for malignant neoplasm of breast (principal); R92.323 Mammographic fibroglandular density, bilateral breasts
CPT/HCPCS: 77063; 77067

== ENCOUNTER 2025-07-23 09:41 | Outpatient (CLI) | payer OTHER, SELFPAY ==
[2025-07-23 09:51] LABS: HCT 35.5 % (36.0-46.0); HGB 11.4 g/dL (11.2-15.7); MCH 27.5 pg (27.0-33.0); MCHC 32.1 % (32.0-36.0); MCV 86 fL (80-95); MPV 9.3 fL (8.0-11.0); Platelet Count 176 10^3/uL (130-400); RBC 4.14 10^6/uL (3.93-5.22); RDW 14.6 % (11.7-14.6); RDW-SD 45.6 fL; WBC 4.62 10^3/uL (4.4-10.8)
[2025-07-23 10:01] LABS: Hemoglobin A1C 5.5 % (<5.7)
[2025-07-23 11:17] LABS: ALT 21 U/L (14-59); AST 17 U/L (15-37); Albumin 3.6 g/dL (3.4-5.0); Alkaline Phosphatase 58 U/L (46-116); Anion Gap 8.5 mmol/L (3-11); BUN 16 mg/dL (7-18); Bilirubin, Total 0.4 mg/dL (0.2-1.0); CO2 30.5 mmol/L (21.0-32.0); Calcium 9.4 mg/dL (8.5-10.1); Calculated LDL 87 mg/dL (<100); Chloride 101 mmol/L (98-107); Cholesterol 173 mg/dL (<200); Estimated GFR 85.35 (mL/min/1.73m2); Glucose 93 mg/dL (74-106); HDL Cholesterol 77 mg/dL (>or=50); Potassium 4.0 mmol/L (3.5-5.1); Sodium 140 mmol/L (136-145); TSH 1.05 uIU/mL (0.36-3.74); Total Protein 7.8 g/dL (6.4-8.2); Triglyceride 49 mg/dL (<150); Vitamin B12 1180 pg/mL (193-986)
== END 2025-07-23 09:42 | disposition home or self-care (01) ==
LOC: LBO 09:46
PROVIDERS: PCP Family Medicine; Visit Provider Psychiatry & Neurology Psychiatry
DX: Z79.899 Other long term (current) drug therapy (principal); R53.83 Other fatigue
CPT/HCPCS: 36415; 80053; 80061; 80175; 85027; 80164; 82607; 83036; 84443

== ENCOUNTER 2025-08-15 19:00 | Emergency (ER) | payer OTHER, SELFPAY ==
[2025-08-15 19:09] VITALS: BP 115/81; PULSE 82; RESP 20; TEMP 36.9; O2SAT 98
[2025-08-15] MEDS: Lidocaine/Epinephri/Tetracaine Topical Gel 3 ML TP (20:26)
[2025-08-15] MEDS: Cellulose,Oxidized 2X3 PKT 1 EACH MC (20:53)
--- NOTE | 2025-08-15 20:54 | W.ED.GENAD ---
Discharge Plan Disposition Patient Disposition: Home Condition: Stable Discharge Details Clinical Impression: Fingertip avulsion Primary Care Provider: Candy Kelly ED Provider: Alex Forte Home Meds and New Rx's Prescriptions: No Action venlafaxine [Effexor XR] 150 MG capsule,extended release 24hr 225 mg PO DAILY divalproex [Depakote] 500 MG tablet,delayed release (DR/EC) 1,000 mg PO DAILY lamotrigine 25 mg tablet 25 mg PO DAILY lorazepam 0.5 mg tablet 0.5 mg PO BID PRN omega 4-pvq-adf-fish oil 500-100-1,000 mg capsule 1 cap PO DAILY rosuvastatin 5 mg tablet 5 mg PO DAILY Discharge Instructions Instructions: Common Finger Injuries ED Additional Instructions: You were seen in the emergency department for your fingertip avulsion, your bleeding was well-controlled by time of arrival, the wound was cleaned and dressed with a hemostatic dressing called Surgicel, leave this on the for 3 to 5 days, you can briefly get the outer dressing wet if you need to shower but try to replace the outer dressing as needed. Please watch for any signs of infection like increasing redness, red streaking up the arm, fever and return for any of these for reevaluation, your tetanus is up-to-date. Stand Alone Forms: Portal Information Referrals: Candy Kelly [Primary Care Provider, Medicine] Discharge Data Discharge Date/Time-TO BE ENTERED AT DEPARTURE: 08/15/25 21:16 HPI General Date/Time Provider Initiated Documentation: 08/15/25 19:12. HPI Narrative: 60 year-old female presents to ED today by POV/ambulating with a chief complaint of L 1st digit injury with bleeding, on a clean knife in the kitchen with onset just prior to arrival. Quality described as sliced the very tip of the fingerpad off completely, no radiation to remaining flap, nailbed involvement, numbness, other trauma. Severity is described as mild. Palliating factors include direct pressure with some relief of bleeding. Provoking factors include nothing specific. Events leading up to the incident/Associated Symptoms: Patient's tetanus is up-to-date. Patient not anticoagulated. Related Data Home Medications Medication Instructions Recorded Confirmed divalproex 500 mg tablet,delayed 1,000 mg PO DAILY 06/02/17 11/12/25 release (Depakote) venlafaxine 150 mg 225 mg PO DAILY 03/05/17 08/15/25 capsule,extended release 24 hr (Effexor XR) lamotrigine 25 mg tablet 25 mg PO DAILY 06/08/24 08/15/25 lorazepam 0.5 mg tablet 0.5 mg PO BID PRN 06/08/24 08/15/25 omega 3-dha 500 mg-epa 100 mg-fish 1 cap PO DAILY 06/08/24 08/15/25 oil 1,000 mg capsule rosuvastatin 5 mg tablet 5 mg PO DAILY High Cholesterol 08/15/25 08/15/25 Allergies Allergy/AdvReac Type Severity Reaction Status Date / Time No Known Allergies Allergy Unverified 08/15/25 19:14 General Stated Complaint: Laceration ELISE: 4 Review of Systems All systems reviewed & are unremarkable except as noted in HPI and below Exam Narrative Exam Narrative: GENERAL APPEARANCE: Well-nourished, non-toxic, awake and alert, atraumatic, no acute distress. SKIN: Warm, pink, dry, left thumb fingertip avulsion 0.5 cm, bleeding well-controlled, range of motion intact, no nailbed involvement, left radial pulse 2+ HEAD: Normocephalic, atraumatic, normal hair distribution for gender/age. EYES: Normal conjunctiva, no exudates on lids/lashes. ENT: Nares patent, no circumoral cyanosis, no facial swelling NECK: Supple, trachea midline, painless cervical ROM. LUNGS/CHEST: Non-labored respirations, normal A/P diameter, symmetrical expansion, no chest wall deformity HEART (CV/PV): Regular rate, no peripheral edema, no JVD. ABDOMEN: Soft, non-distended, no guarding. MSK: Normal ROM, no swelling/deformity to bilateral UEs or LEs, moving all extremities without weakness, no cyanosis, spine midline without tenderness, normal curvature. NEURO: Mental Status AAOx4 - alert to person, place, time, events No facial droop, no forehead involvement. Motor: No focal weakness - strength 5/5 in bilateral UEs and LEs, proximal and distal, symmetric. Sensory: sensation intact to light touch globally. Gait normal: patient ambulated without ataxia into ED room. PSYCH: euthymic, cooperative, pleasant, appropriate speech Course Vital Signs Vital signs: Vital Signs Temperature 36.9 C 08/15/25 19:09 Pulse 82 08/15/25 19:09 Respiratory Rate 20 08/15/25 19:09 Blood Pressure 115/81 08/15/25 19:09 Pulse Oximetry 98 08/15/25 19:09 Temperature 36.9 C 08/15/25 19:09 Pulse 82 08/15/25 19:09 Respiratory Rate 20 08/15/25 19:09 Blood Pressure 115/81 08/15/25 19:09 Blood Pressure Position Sitting 08/15/25 19:09 Pulse Oximetry 98 08/15/25 19:09 Oxygen Delivery Method Room Air 08/15/25 19:09 Oxygen Flow Rate 0 08/15/25 19:09 Medical Decision Making This dictation utilizes [id number] dictation software and may contain unedited grammatical errors. 60 year-old female presents to ED today by POV/ambulating with a chief complaint of L 1st digit injury with bleeding, on a clean knife in the kitchen with onset just prior to arrival. Quality described as sliced the very tip of the fingerpad off completely, no radiation to remaining flap, nailbed involvement, numbness, other trauma. Severity is described as mild. Palliating factors include direct pressure with some relief of bleeding. Provoking factors include nothing specific. Events leading up to the incident/Associated Symptoms: Patient's tetanus is up-to-date. Patients' medical history: Noncontributory. Family and social history: Noncontributory. Pertinent exam findings / vital signs include left thumb fingertip avulsion 0.5 cm, bleeding well-controlled, range of motion intact, no nailbed involvement, left radial pulse 2+. Differential / pathologies of concern include fingertip avulsion, laceration. Diagnostic studies of: - None. Interventions of: - Simple bandage with Surgicel for hemostatic agent. ED Course/Assessment/Plan: 60-year-old female has fingertip avulsion of left thumb on a clean knife in the kitchen, wound was cleaned after let was applied and was bandaged with Surgicel dressing, strict return criteria for any signs of infection, Tdap is up-to-date. Findings not consistent with uncontrolled bleeding, neurovascular compromise. Disposition of fingertip avulsion. Patient verbalized understanding of the plan and return to ED criteria and engaged in shared decision making. Medical Records Medical records reviewed: Yes I reviewed the patient's medical records. PFSH All Active Problems (Updated 08/15/25 @ 21:06 by YARI Amezcua) Fingertip avulsion (Acute) Medical History Menopause Idiopathic aseptic necrosis of bone History of prediabetes Memory impairment Fatigue Hip pain Acute joint pain Vaginal discharge History of IBS Xerostomia Impacted cerumen Bipolar 1 disorder, depressed, partial remission Obesity Polyclonal hypergammaglobulinemia Hyperlipidemia Vitamin D deficiency Simple goiter Lipoma of thigh HPV (human papilloma virus) infection Surgical History wisdom teeth Colonoscopy - [facility] (03/22/17) Family History Mother Hypertension H/O Sjogren's disease Fibromyalgia Social History Smoking/Tobacco Use Status: Former Tobacco Use Smoking risk assessment performed?: Yes Alcohol Intake: current Alcohol Intake frequency: a few times a week Alcohol type: beer Drug use: Never Substance use type: does not use Do you feel safe at home: Yes Do you feel safe in your relationship?: Yes
== END 2025-08-15 21:16 | disposition home or self-care (01) ==
LOC: ER 21:15
PROVIDERS: Emergency Provider Physician Assistant; PCP Family Medicine
DX: S61.211A Laceration without foreign body of left index finger without damage to nail, initial encounter (principal); W26.0XXA Contact with knife, initial encounter
CPT/HCPCS: 99283 ×2

== ENCOUNTER 2025-08-18 12:55 | Emergency (ER) | payer OTHER, SELFPAY ==
[2025-08-18 12:57] VITALS: BP 109/75; PULSE 100; RESP 16; TEMP 36.8; O2SAT 98
--- NOTE | 2025-08-18 13:24 | W.ED.GENAD ---
Discharge Plan Disposition Patient Disposition: Home Condition: Stable Discharge Details Clinical Impression: Fingertip avulsion Primary Care Provider: Candy Kelly ED Provider: Tony Kumar Home Meds and New Rx's Prescriptions: New lidocaine HCl 2 % solution 1 applic topical BID-TID Qty: 300 0RF Continued venlafaxine [Effexor XR] 150 MG capsule,extended release 24hr 225 mg PO DAILY divalproex [Depakote] 500 MG tablet,delayed release (DR/EC) 1,000 mg PO DAILY lamotrigine 25 mg tablet 25 mg PO DAILY lorazepam 0.5 mg tablet 0.5 mg PO BID PRN omega 6-hja-mwd-fish oil 500-100-1,000 mg capsule 1 cap PO DAILY rosuvastatin 5 mg tablet 5 mg PO DAILY Discharge Instructions Additional Instructions: If you soak your finger in water with a small amount of soap a few times a day dressing should come off. If she has pain you can also use the topical lidocaine up to 3 times a day. Return to the emergency department if you have signs of infection such as spreading redness, wounds or fevers. Stand Alone Forms: Portal Information HPI General Mode of arrival: ambulatory. Date/Time Provider Initiated Documentation: 08/18/25 12:59. Limitations to Documentation: no limitations. Information obtained by: patient. History of Present Illness 60 year old F presents to the emergency department with the chief complaint of right thumb pain, described as moderate, Quality is described as aching, and is localized to the right and upper extremity. Patient reports no radiation. Patient started experiencing this day(s) (3) and it has been constant. No relieving factors improve symptom(s), No exacerbating factors reported . Patient notes no other symptoms.. Patient did receive the following treatments prior to arrival, none Related Data Home Medications Medication Instructions Recorded Confirmed divalproex 500 mg tablet,delayed 1,000 mg PO DAILY 03/05/17 08/15/25 release (Depakote) venlafaxine 150 mg 225 mg PO DAILY 03/05/17 08/15/25 capsule,extended release 24 hr (Effexor XR) lamotrigine 25 mg tablet 25 mg PO DAILY 06/08/24 08/15/25 lorazepam 0.5 mg tablet 0.5 mg PO BID PRN 06/08/24 08/15/25 omega 3-dha 500 mg-epa 100 mg-fish 1 cap PO DAILY 06/08/24 08/15/25 oil 1,000 mg capsule rosuvastatin 5 mg tablet 5 mg PO DAILY High Cholesterol 08/15/25 08/15/25 lidocaine HCl 2 % mucosal solution 1 applic topical BID-TID #300 mL 08/18/25 Previous Rx's Medication Instructions Recorded lidocaine HCl 2 % mucosal solution 1 applic topical BID-TID #300 mL 08/18/25 Allergies Allergy/AdvReac Type Severity Reaction Status Date / Time No Known Allergies Allergy Unverified 08/18/25 13:01 General Stated Complaint: Recheck ELISE: 4 Review of Systems All systems reviewed & are unremarkable except as noted in HPI and below Constitutional Constitutional: Denies chills and Denies fever(s) Integumentary/Breasts Skin/Breast: Denies rash Exam Const General: no acute distress Orientation: alert HENMA Head: normal to inspection Ears: external ears normal General nose exam: external nose normal Mouth: moist mucous membranes Eyes General: appearance normal, both eyes and all related structures Neck Neck: normal visual inspection Resp Effort & Inspection: normal respiratory effort and able to speak in complete sentences Cardio Rate: regular rate Skin General skin exam: no rashes or lesions noted Neuro General: patient alert and patient oriented x3 Extrem General: full ROM and capillary refill normal Psych Mental Status: mental status grossly normal Course Vital Signs Vital signs: Vital Signs Temperature 36.8 C 08/18/25 12:57 Pulse 100 H 08/18/25 12:57 Respiratory Rate 16 08/18/25 12:57 Blood Pressure 109/75 08/18/25 12:57 Pulse Oximetry 98 08/18/25 12:57 Temperature 36.8 C 08/18/25 12:57 Pulse 100 H 08/18/25 12:57 Respiratory Rate 16 08/18/25 12:57 Blood Pressure 109/75 08/18/25 12:57 Pulse Oximetry 98 08/18/25 12:57 Oxygen Delivery Method Room Air 08/18/25 12:57 Oxygen Flow Rate 0 08/18/25 12:57 Medical Decision Making 60-year-old female comes in with continued right thumb pain. She was seen 3 days ago after she sustained an avulsion injury to her distal right thumb with a knife while cutting cabbage. Denies any new injuries but states she has continued pain in the thumb symptoms and for reevaluation. Denies any fevers, swelling, erythema of the thumb. She has mild swelling of the abdominal exam. I attempted to remove the dressing and attempted Surgicel was applied but was unable to tolerate secondary to her symptoms and became consistent at this time further assess the wound. She has no findings on exam to suggest an infectious etiology. Patient's pain is resolved after using some topical lidocaine. I was unable to pull off the Surgicel as it is so adherent to the wound. I advised that if she soaks it in the next few days it should come off easily when would have less chance of going up a scab this way. She is comfortable with discharge and return precautions given. Differential Diagnosis Differential Diagnosis: avulsion, laceration Medical Records Medical records reviewed: Yes I reviewed the patient's medical records. PFSH All Active Problems (Updated 08/18/25 @ 14:11 by Tony Kumar MD) Fingertip avulsion (Acute) Medical History Menopause Idiopathic aseptic necrosis of bone History of prediabetes Memory impairment Fatigue Hip pain Acute joint pain Vaginal discharge History of IBS Xerostomia Impacted cerumen Bipolar 1 disorder, depressed, partial remission Obesity Polyclonal hypergammaglobulinemia Hyperlipidemia Vitamin D deficiency Simple goiter Lipoma of thigh HPV (human papilloma virus) infection Surgical History wisdom teeth Colonoscopy - [facility] (03/22/17) Family History Mother Hypertension H/O Sjogren's disease Fibromyalgia Social History Smoking/Tobacco Use Status: Former Tobacco Use Smoking risk assessment performed?: Yes Alcohol Intake: current Alcohol Intake frequency: a few times a week Alcohol type: beer Drug use: Never Substance use type: does not use Do you feel safe at home: Yes Do you feel safe in your relationship?: Yes
[2025-08-18] MEDS: Lidocaine 2% Viscous 1 ML Solution 15 ML MM (13:29)
[2025-08-18] MEDS: Lidocaine 2% Viscous 15 ML CUP PO (14:21)
[2025-08-18] MEDS: Lidocaine 2% Viscous 1 ML Solution 15 ML PO (14:21)
== END 2025-08-18 14:28 | disposition home or self-care (01) ==
PROVIDERS: Emergency Provider Emergency Medicine; PCP Family Medicine
DX: S61.011D Laceration without foreign body of right thumb without damage to nail, subsequent encounter (principal); W26.0XXD Contact with knife, subsequent encounter
CPT/HCPCS: 99283 ×2

== ENCOUNTER 2025-08-25 10:44 | Emergency (ER) | payer OTHER, SELFPAY ==
[2025-08-25 10:46] VITALS: BP 129/89; PULSE 79; RESP 16; TEMP 36.8; O2SAT 99
--- NOTE | 2025-08-25 11:11 | W.ED.GENAD ---
Discharge Plan Disposition Patient Disposition: Home Condition: Good Discharge Details Clinical Impression: Cellulitis Primary Care Provider: Candy Kelly ED Provider: Tonia Randle Home Meds and New Rx's Prescriptions: New cephalexin 500 mg capsule 500 mg PO QID 5 Days Qty: 20 0RF Continued venlafaxine [Effexor XR] 150 MG capsule,extended release 24hr 225 mg PO DAILY divalproex [Depakote] 500 MG tablet,delayed release (DR/EC) 1,000 mg PO DAILY lamotrigine 25 mg tablet 25 mg PO DAILY lorazepam 0.5 mg tablet 0.5 mg PO BID PRN omega 8-gbt-rzg-fish oil 500-100-1,000 mg capsule 1 cap PO DAILY rosuvastatin 5 mg tablet 5 mg PO DAILY lidocaine HCl 2 % solution 1 applic topical BID-TID Qty: 300 0RF Discharge Instructions Additional Instructions: Please call your primary care provider first thing Wednesday morning to schedule follow-up appointment for wound recheck. You are being prescribed an antibiotic to help treat local infection. Please take the full course as prescribed. I recommend that you use warm water soaks for 15 to 20 minutes at a time to your thumb. Wash regularly with antibacterial soap and water. You may apply a thin layer of Neosporin antibiotic ointment cover with a bandage. Tylenol may be used for discomfort as needed. Return to emergency care if you develop worsening redness/swelling/pain to her thumb, pus drainage, systemic symptoms such as fever/chills, or if you are very worried and need to be recchecked again immediately Stand Alone Forms: Portal Information Discharge Data Discharge Date/Time-TO BE ENTERED AT DEPARTURE: 08/25/25 11:32 HPI General Date/Time Provider Initiated Documentation: 08/25/25 10:57. HPI Narrative: Neha is a 60-year-old female who presents to the emergency department today for drainage from left thumb wound. She reports that approximately 10 days ago she cut her fingertip with a knife, was treated in the emergency department with Surgicel after diagnosis with fingertip avulsion. Reports that she has done occasional warm water soaks and dressing antibacterial soap, but today noticed some yellow liquid draining from the fingertip. She denies fever/chills, systemic symptoms/general malaise, increasing pain to the wound, new numbness, swelling to the thumb, or decreased range of motion. Denies antibiotic allergies or recent antibiotic use other than for BV (topical). Denies history of diabetes or problems with healing Related Data Home Medications Medication Instructions Recorded Confirmed divalproex 500 mg tablet,delayed 1,000 mg PO DAILY 03/05/17 08/25/25 release (Depakote) venlafaxine 150 mg 225 mg PO DAILY 03/05/17 08/25/25 capsule,extended release 24 hr (Effexor XR) lamotrigine 25 mg tablet 25 mg PO DAILY 06/08/24 08/25/25 lorazepam 0.5 mg tablet 0.5 mg PO BID PRN 06/08/24 08/25/25 omega 3-dha 500 mg-epa 100 mg-fish 1 cap PO DAILY 06/08/24 08/25/25 oil 1,000 mg capsule rosuvastatin 5 mg tablet 5 mg PO DAILY High Cholesterol 08/15/25 08/25/25 lidocaine HCl 2 % mucosal solution 1 applic topical BID-TID #300 mL 08/18/25 08/25/25 cephalexin 500 mg capsule 500 mg PO QID 5 days #20 caps 08/25/25 Previous Rx's Medication Instructions Recorded lidocaine HCl 2 % mucosal solution 1 applic topical BID-TID #300 mL 08/18/25 cephalexin 500 mg capsule 500 mg PO QID 5 days #20 caps 08/25/25 Allergies Allergy/AdvReac Type Severity Reaction Status Date / Time No Known Allergies Allergy Unverified 08/25/25 10:50 General Stated Complaint: RashLesion ELISE: 4 Exam Const General: cooperative, healthy appearing, comfortable and no acute distress Nutritional Appearance: average body habitus and well nourished Orientation: alert and oriented x3 Resp Effort & Inspection: normal respiratory effort and able to speak in complete sentences Skin Wounds: wounds noted (healing L distal thumb avulsion) avulsion left thumb with surrounding erythema (mild, extending down sides of nailfold); no sutures and no tutu Course Vital Signs Vital signs: Vital Signs Temperature 36.8 C 08/25/25 10:46 Pulse 79 08/25/25 10:46 Respiratory Rate 16 08/25/25 10:46 Blood Pressure 129/89 08/25/25 10:46 Pulse Oximetry 99 08/25/25 10:46 Temperature 36.8 C 08/25/25 10:46 Temperature Source Oral 08/25/25 10:46 Pulse 79 08/25/25 10:46 Respiratory Rate 16 08/25/25 10:46 Blood Pressure 129/89 08/25/25 10:46 Blood Pressure Position Sitting 08/25/25 10:46 Pulse Oximetry 99 08/25/25 10:46 Oxygen Delivery Method Room Air 08/25/25 10:46 Oxygen Flow Rate 0 08/25/25 10:46 Pain Level 3 08/25/25 10:46 Medical Decision Making Neha is a 60-year-old female who presents to the emergency department today for drainage from left thumb wound. She reports that approximately 10 days ago she cut her fingertip with a knife, was treated in the emergency department with Surgicel after diagnosis with fingertip avulsion. Reports that she has done occasional warm water soaks and dressing antibacterial soap, but today noticed some yellow liquid draining from the fingertip. She denies fever/chills, systemic symptoms/general malaise, increasing pain to the wound, new numbness, swelling to the thumb, or decreased range of motion. Denies antibiotic allergies or recent antibiotic use other than for BV (topical). Physical exam remarkable for granulation tissue to right fingertip, mild redness noted along fingertip, no pus able to be expressed or obvious abscess. History and presentation consistent with probable mild cellulitis. Treat with Keflex 500 mg 4 times daily x 5 days and have patient follow-up with PCP. Advised warm water soaks, antibacterial soap, and topical antibiotics such as neosporin. Reviewed red flags indicating need for return to emergency care [facility] All Active Problems (Updated 08/25/25 @ 11:16 by Tonia Cantor) Cellulitis (Acute) Fingertip avulsion (Acute) Medical History Menopause Idiopathic aseptic necrosis of bone History of prediabetes Memory impairment Fatigue Hip pain Acute joint pain Vaginal discharge History of IBS Xerostomia Impacted cerumen Bipolar 1 disorder, depressed, partial remission Obesity Polyclonal hypergammaglobulinemia Hyperlipidemia Vitamin D deficiency Simple goiter Lipoma of thigh HPV (human papilloma virus) infection Surgical History wisdom teeth Colonoscopy - [facility] (03/22/17) Family History Mother Hypertension H/O Sjogren's disease Fibromyalgia Social History Smoking/Tobacco Use Status: Former Tobacco Use Smoking risk assessment performed?: Yes Alcohol Intake: current Alcohol Intake frequency: a few times a week Alcohol type: beer Drug use: Never Substance use type: does not use Housing: house Do you feel safe at home: Yes Do you feel safe in your relationship?: Yes PAWSS Have you Been Recently Intoxicated or Drunk Within the Last 30 days?: No Have you Ever Experienced Previous Episodes of Alcohol Withdrawal?: No Have you ever Experienced Withdrawal Seizures?: No Have you ever Experienced Delirium Tremens(DT)s?: No Have you ever undergone Alcohol Rehabilitation Treatment (i.e, inpt ot outpatient treatment programs)?: No Have you ever Experienced Blackouts?: No Have you ever Combined Alcohol with other Downers within the last 90 days?: No Have you ever Combined Alcohol with any other Substance of Abuse during the last 90 days?: No Result: 0
[2025-08-25] MEDS: Cephalexin 500 MG CAP PO (11:24)
[2025-08-25 11:31] VITALS: BP 97/64; PULSE 90; RESP 18; O2SAT 100
== END 2025-08-25 11:32 | disposition home or self-care (01) ==
PROVIDERS: Emergency Provider Nurse Practitioner Family; PCP Family Medicine
DX: L03.012 Cellulitis of left finger (principal)
CPT/HCPCS: 99283 ×2